=== PATIENT | male | born 1955 | race Caucasian/White ===

== ENCOUNTER 2019-12-16 16:31 | Emergency (ER) | payer BC ==
[~2019-12-16] VITALS: Ht 180.3 cm; Wt 99.8 kg
[2019-12-16] MEDS ORDERED: ONDANSETRON ODT8 MG PO (18:42)
== END 2019-12-16 18:51 | disposition home or self-care (01) ==
LOC: ED 16:31
DX: S06.0X1A Concussion with loss of consciousness of 30 minutes or less, initial encounter (principal); W18.30XA Fall on same level, unspecified, initial encounter
CPT/HCPCS: 70450; 72125; 80053; 85025; 96374; 99284-25; J2405; J7040